=== PATIENT | female | born 1990 | race American Indian/Alaskan Native ===

== ENCOUNTER 2020-02-16 20:11 | Emergency (ER) | payer SELFPAY ==
[2020-02-16 20:20] VITALS: BP 108/64
--- NOTE | 2020-02-16 21:08 | XRay Report ---
CHEST 1 VIEW 02/16/2020 9:01 PM INDICATION / CLINICAL INFORMATION: Chest pain for 2 days. COMPARISON: None available. FINDINGS: SUPPORT DEVICES: None. HEART / MEDIASTINUM: No significant abnormality. LUNGS / PLEURA: No significant pulmonary or pleural abnormality. No pneumothorax. ADDITIONAL FINDINGS: No significant additional findings. IMPRESSION: 1. No acute abnormality of the chest. Signer Name: Jordan Kirk MD Signed: 02/16/2020 9:03 PM Workstation Name: [id number]
[2020-02-16] MEDS ORDERED: KETOROLAC 30 MG/1 ML INJ IM ONE (22:52)
[2020-02-16] MEDS ORDERED: BUTALB/ACETAMINOPHEN/CAFFEINE TAB PO ONE (22:52)
[2020-02-16] MEDS: ONDANSETRON 4 MG ODT TAB PO ONE ×2 (23:08→23:09)
[2020-02-16 23:09] LABS: Hematocrit 32.4 % (30.3-42.9); Hemoglobin 11.1 gm/dl (10.1-14.3); Mean Corpuscular HGB Conc 34 % (30-34); Mean Corpuscular Volume 88 fl (79-97); Platelet Count 291 K/mm3 (140-440); Red Blood Count 3.66 M/mm3 (3.65-5.03); Red Cell Distribution Width 14.1 % (13.2-15.2)
[2020-02-16 23:32] LABS: Alanine Aminotransferase 7 units/L (7-56); Albumin 3.9 g/dL (3.9-5); BUN/Creatinine Ratio 23; Blood Urea Nitrogen 14 mg/dL (7-17); Calcium 8.8 mg/dL (8.4-10.2); Hemolysis Index 5
[2020-02-16 23:49] LABS: RBC Morphology Normal; Total Cells Counted 100
--- NOTE | 2020-02-17 00:21 | Emergency Department Report ---
ED General Adult HPI - General Chief complaint: Chest Pain Stated complaint: BAD HEADACHES CHEST PAIN Source: patient Mode of arrival: Ambulatory Limitations: No Limitations - History of Present Illness Initial comments: Patient is a 30-year-old -[place] female with no past medical history who presents to the ED with complaint of acute onset persistent severe bitemporal headache and left-sided chest wall pain for the last 12 hours. Patient states that she woke up with pain in the left lateral chest wall and that the pain has been constant and is worse with palpation of the left chest wall or walking. Patient states that the headache is also been persistent despi te taking [id number] ibuprofen. Patient admits that she usually sleeps on her left side most of the night and suspect this may have been from sleeping on the left side. Patient also states that she has been worried in the last 2 days because of the current lockdown condition and that she is unable to go to work yet she has 5 children to take care of alone. The patient states that because of the stress in the house headache is worsened. Patient denies dizziness, syncope, shortness of breath, fever, chills, cough, nasal and sinus congestion, sore throat, abdominal pain, nausea and vomiting or diarrhea, change in vision or back pain, traumatic injury or heavy lifting. MD Complaint: left-sided chest wall pain; bitemporal headache -: Sudden, days(s) (2) Location: head, chest Radiation: non-radiation Severity scale (0 -10): 8 Quality: aching, sharp Consistency: constant Improves with: none Worsens with: none Associated Symptoms: denies other symptoms, chest pain (left-sided), headaches. denies: confusion, cough, diaphoresis, fever/chills, loss of appetite, malaise, nausea/vomiting, rash, seizure, shortness of breath, syncope, weakness Treatments Prior to Arrival: none - Related Data Previous Rx's Medication Instructions Recorded Last Taken Type HYDROcodone/ACETAMINOPHEN [Lortab 1 each PO Q8H #10 tablet 06/12/14 Unknown Rx 5-325 mg Tablet] Ibuprofen [Motrin] 600 mg PO Q8H #30 tablet 06/12/14 Unknown Rx Butalb/Acetamin/Caff 50-325-40 1 tab PO Q6HR PRN #15 tab 02/17/20 Unknown Rx [Fioricet 50-325-40] Ketorolac [Toradol] 10 mg PO Q8H PRN #20 tablet 02/17/20 Unknown Rx Ondansetron [Zofran Odt] 4 mg PO Q6HR PRN #15 tab.rapdis 02/17/20 Unknown Rx Allergies Allergy/AdvReac Type Severity Reaction Status Date / Time No Known Allergies Allergy Unverified 06/12/14 03:36 ED Review of Systems ROS: Stated complaint: BAD HEADACHES CHEST PAIN Other details as noted in HPI Constitutional: denies: chills, fever Eyes: denies: eye pain, eye discharge, vision change ENT: denies: ear pain, throat pain Respiratory: denies: cough, shortness of breath, wheezing Cardiovascular: chest pain (left chest wall pain). denies: palpitations Endocrine: no symptoms reported Gastrointestinal: denies: abdominal pain, nausea, diarrhea Genitourinary: denies: urgency, dysuria, discharge Musculoskeletal: denies: back pain, joint swelling, arthralgia Skin: denies: rash, lesions Neurological: headache. denies: weakness, paresthesias Psychiatric: anxiety. denies: depression Hematological/Lymphatic: denies: easy bleeding, easy bruising ED Past Medical Hx - Past Medical History Previous Medical History?: No - Surgical History Past Surgical History?: Yes Additional Surgical History: c section x2 2007, 2010 - Social History Smoking Status: Never Smoker Substance Use Type: None - Medications Home Medications: Home Medications Medication Instructions Recorded Confirmed Last Taken Type HYDROcodone/ACETAMINOPHEN [Lortab 1 each PO Q8H #10 tablet 06/12/14 Unknown Rx 5-325 mg Tablet] Ibuprofen [Motrin] 600 mg PO Q8H #30 tablet 06/12/14 Unknown Rx Butalb/Acetamin/Caff 50-325-40 1 tab PO Q6HR PRN #15 tab 02/17/20 Unknown Rx [Fioricet 50-325-40] Ketorolac [Toradol] 10 mg PO Q8H PRN #20 tablet 02/17/20 Unknown Rx Ondansetron [Zofran Odt] 4 mg PO Q6HR PRN #15 tab.rapdis 02/17/20 Unknown Rx ED Physical Exam - General Limitations: No Limitations General appearance: alert, in no apparent distress - Head Head exam: Present: atraumatic, normocephalic, normal inspection - Eye Eye exam: Present: normal appearance, PERRL, EOMI Pupils: Present: normal accommodation - ENT ENT exam: Present: normal exam, normal orophraynx, mucous membranes moist, TM's normal bilaterally, normal external ear exam - Neck Neck exam: Present: normal inspection, full ROM - Respiratory Respiratory exam: Present: normal lung sounds bilaterally, chest wall tenderness (palpable reproducible left chest wall tenderness). Absent: respiratory distress, wheezes, rales, rhonchi - Cardiovascular Cardiovascular Exam: Present: regular rate, normal rhythm. Absent: systolic murmur, diastolic murmur, rubs, gallop - GI/Abdominal GI/Abdominal exam: Present: soft, normal bowel sounds. Absent: tenderness, guarding - Extremities Exam Extremities exam: Present: normal inspection, full ROM, normal capillary refill - Back Exam Back exam: Present: normal inspection, full ROM. Absent: muscle spasm, paraspinal tenderness - Neurological Exam Neurological exam: Present: alert, oriented X3, CN II-XII intact, normal gait, reflexes normal - Psychiatric Psychiatric exam: Present: normal affect, normal mood, anxious - Skin Skin exam: Present: warm, dry, intact, normal color. Absent: rash ED Course Vital Signs 02/16/20 20:18 Temperature 98.3 F Pulse Rate 85 Respiratory 18 Rate Blood Pressure 108/64 O2 Sat by Pulse 99 Oximetry ED Medical Decision Making - Lab Data Result diagrams: 02/16/20 22:57 02/16/20 22:57 - Radiology Data Radiology results: report reviewed, image reviewed Chest x-ray shows no acute cardiopulmonary abnormalities or pneumonitis. - Medical Decision Making This is a 30-year-old female who presented to the ED with acute onset persistent bitemporal headache with left-sided chest wall pain. In the ED, patient is alert and oriented x3 and is not in distress. EKG shows normal sinus rhythm with ventricular rate of [address] or T wave abnormalities. Chest x-ray shows no acute cardiopulmonary abnormalities or pneumonitis. Lab test results were reviewed and are all nonactionable. Patient was treated for pain in the ED and on reevaluation, patient's pain resolved especially headache. Patient was discharged home on pain medications and advised follow-up with her primary care physician in 5 to 7 days for reevaluation. Patient symptoms are likely due to anxiety, muscle strain of the chest wall and tension headache. Patient was advised to return to the ED immediately if symptoms get worse. - Differential Diagnosis Anxiety; Muscle strain; Tension headache Critical care attestation.: If time is entered above; I have spent that time in minutes in the direct care of this critically ill patient, excluding procedure time. ED Disposition Clinical Impression: Left-sided chest wall pain, Anxiety as acute reaction to exceptional stress Tension-type headache Qualifiers: Headache chronicity pattern: acute headache Intractability: not intractable Qualified Code(s): G44.209 - Tension-type headache, unspecified, not intractable Disposition: DC-01 TO HOME OR SELFCARE Is pt being admited?: No Does the pt Need Aspirin: No Condition: Stable Instructions: Chest Pain (ED), Costochondritis (ED), Tension Headache (ED), Generalized Anxiety Disorder (ED) Additional Instructions: All lab test results are unremarkable as well as chest x-ray and EKG. Your symptoms are due to anxiety and tension headache and your chest pain is due to muscle strain of your chest wall. Therefore take medications with food, drink plenty of fluids and follow-up with your primary care physician in 5 to 7 days for reevaluation. Return to the ED immediately if symptoms get worse. Prescriptions: Butalb/Acetamin/Caff 50-325-40 [Fioricet 50-325-40] 1 tab PO Q6HR PRN #15 tab PRN Reason: Headache Ketorolac [Toradol] 10 mg PO Q8H PRN #20 tablet PRN Reason: Pain Ondansetron [Zofran Odt] 4 mg PO Q6HR PRN #15 tab.rapdis PRN Reason: Nausea Referrals: [facility] [Provider Group] - 7-10 days Time of Disposition: 00:16 Print Language: COMORAN
[2020-02-17 00:24] LABS: Bacteria,Urine 2+ /HPF (Negative); Bilirubin,Urine NEG (Negative); Blood,Urine NEG (Negative); Color,Urine Yellow (Yellow); Mucus,Urine FEW /HPF; Protein,Urine <15 mg/dL mg/dL (Negative)
== END 2020-02-17 00:38 | disposition home or self-care (01) ==
LOC: ED 20:11
DX: R07.89 Other chest pain (principal); G44.209 Tension-type headache, unspecified, not intractable; F41.9 Anxiety disorder, unspecified; Z98.890 Other specified postprocedural states; Z79.1 Long term (current) use of non-steroidal anti-inflammatories (NSAID); Z79.899 Other long term (current) drug therapy
CPT/HCPCS: 36415; 71045; 80053; 81001; 84484; 84703; 85007; 85025; 87076; 87086; 87186; 93005; 93010; 96372; 99284; J1885; Q0162

== ENCOUNTER 2020-04-10 15:42 | Emergency (ER) | payer SELFPAY ==
[2020-04-10 15:49] VITALS: BP 114/81
[2020-04-10] MEDS ORDERED: IBUPROFEN 600 MG TAB PO ONE (17:06)
--- NOTE | 2020-04-10 17:11 | Emergency Department Report ---
ED General Adult HPI - General Chief complaint: Chest Pain Stated complaint: CP/HEADACHE/ Time Seen by Provider: 04/10/20 17:06 Source: patient, RN notes reviewed, old records reviewed Mode of arrival: Ambulatory Limitations: No Limitations - History of Present Illness Initial comments: 30-year-old -[place] female presents to the emergency room complaining of chest pain and headache with shortness of breath x2 days. Patient states lying flat makes her shortness of breath worse and Tylenol helps with her chest pain and headache. Patient states that the headache will come back as well as the chest pain after the Tylenol has worn off. Patient denies any nausea vomiting or diarrhea. Patient denies any dizziness change of vision fever or chills. Patient's last menstrual period was 04/03/2020. Patient is 5 para 5. Patient reports that the headache and chest pain is intermittent will resolve with meds but return. Patient reports she does not have a primary care provider. She has no known drug allergies. Patient reports she has been seen here before in the past for headaches. Patient does admit that she feels overwhelmed at home as she has 5 children all under the age of 11. With a 7-month-old and a [id number]. Onset/Timin -: days(s) Location: head, chest Radiation: non-radiation Severity scale (0 -10): 4 Quality: aching Consistency: intermittent Improves with: medication Worsens with: rest Associated Symptoms: chest pain, headaches, shortness of breath. denies: loss of appetite, nausea/vomiting, syncope, weakness Treatments Prior to Arrival: none - Related Data Previous Rx's Medication Instructions Recorded Last Taken Type HYDROcodone/ACETAMINOPHEN [Lortab 1 each PO Q8H #10 tablet 06/12/14 Unknown Rx 5-325 mg Tablet] Butalb/Acetamin/Caff 50-325-40 1 tab PO Q6HR PRN #15 tab 02/17/20 Unknown Rx [Fioricet 50-325-40] Ketorolac [Toradol] 10 mg PO Q8H PRN #20 tablet 02/17/20 Unknown Rx Ondansetron [Zofran Odt] 4 mg PO Q6HR PRN #15 tab.rapdis 02/17/20 Unknown Rx Ibuprofen [Motrin 600 MG tab] 600 mg PO Q8H #30 tablet 04/10/20 Unknown Rx Allergies Allergy/AdvReac Type Severity Reaction Status Date / Time No Known Allergies Allergy Unverified 06/12/14 03:36 ED Review of Systems ROS: Stated complaint: CP/HEADACHE/ Other details as noted in HPI ED Past Medical Hx - Past Medical History Previous Medical History?: No - Surgical History Past Surgical History?: Yes Additional Surgical History: c section x2 2007, 2010 - Social History Smoking Status: Never Smoker Substance Use Type: None - Medications Home Medications: Home Medications Medication Instructions Recorded Confirmed Last Taken Type HYDROcodone/ACETAMINOPHEN [Lortab 1 each PO Q8H #10 tablet 06/12/14 Unknown Rx 5-325 mg Tablet] Butalb/Acetamin/Caff 50-325-40 1 tab PO Q6HR PRN #15 tab 02/17/20 Unknown Rx [Fioricet 50-325-40] Ketorolac [Toradol] 10 mg PO Q8H PRN #20 tablet 02/17/20 Unknown Rx Ondansetron [Zofran Odt] 4 mg PO Q6HR PRN #15 tab.rapdis 02/17/20 Unknown Rx Ibuprofen [Motrin 600 MG tab] 600 mg PO Q8H #30 tablet 04/10/20 Unknown Rx ED Physical Exam - General Limitations: No Limitations General appearance: alert, in no apparent distress - Head Head exam: Present: atraumatic, normocephalic - Eye Eye exam: Present: normal appearance - ENT ENT exam: Present: mucous membranes moist - Neck Neck exam: Present: tenderness (Bilateral trapeze), full ROM - Respiratory Respiratory exam: Present: normal lung sounds bilaterally. Absent: respiratory distress, chest wall tenderness - Cardiovascular Cardiovascular Exam: Present: regular rate, normal rhythm. Absent: systolic murmur, diastolic murmur, rubs, gallop - GI/Abdominal GI/Abdominal exam: Present: soft. Absent: distended, tenderness, guarding - Extremities Exam Extremities exam: Present: normal inspection, full ROM - Back Exam Back exam: Present: normal inspection, full ROM - Expanded Neurological Exam Expanded Patient oriented to: Present: person, place, time Cranial nerves: EOM's Intact: Normal, Gag Reflex: Normal, Tongue Deviation: Normal, Nystagmus: Normal, Facial Sensation: Normal, Facial Palsy with Forehead Movement: Normal, Facial Palsy without Forehead Movement: Normal Cerebellar function: Finger to Nose: Normal, Heel to [place]: Normal, Romberg: Normal Upper motor neuron: Kodak Neglect: Normal, Pronator Drift: Normal, Sensory Extinction: Normal Sensory exam: Upper Extremity Light Touch: Normal, Upper Extremity Pin Prick: Normal, Upper Extremity Temperature: Normal, UE 2 Point Discrimination: Normal, Lower Extremity Light Touch: Normal, Lower Extremity Pin Prick: Normal, Lower Extremity Temperature: Normal, LE 2 Point Discrimination: Normal Motor strength exam: RUE: 4, LUE: 4, RLE: 4, LLE: 4 Best Eye Response ([place]): (4) open spontaneously Best Motor Response ([place]): (6) obeys commands Best Verbal Response ([place]): (5) oriented [place] Total: 15 - Psychiatric Psychiatric exam: Present: normal affect, normal mood - Skin Skin exam: Present: warm, dry, intact, normal color. Absent: rash ED Course Vital Signs 04/10/20 15:46 Temperature 98.2 F Pulse Rate 77 Respiratory 18 Rate Blood Pressure 114/81 O2 Sat by Pulse 100 Oximetry ED Medical Decision Making - EKG Data EKG shows normal: sinus rhythm Rate: normal - Radiology Data Radiology results: report reviewed Referring Physician:NIKHIL JOSÉPatient Name:SOLIS WRIGHTatient ID:[id number] of :[id number]:FemaleAccession:[id number] Date:[id number] Status:Finalized Findings [facility] [address] [place] [address] XRay Report Signed Patient: SOLIS VALDES MR#: [id number] : 1990 Acct:[id number] Age/Sex: 30 / F ADM Date: 04/10/20 Loc: ED Attending Dr: Ordering Physician: RACHEL PURVIS Date of Service: 04/10/20 Procedure(s): XR chest routine 2V Accession Number(s): [id number] cc: RACHEL PURVIS Fluoro Time In Minutes: CHEST 2 VIEWS INDICATION / CLINICAL INFORMATION: Chest pain shortness of breath. COMPARISON: 02/16/2020 FINDINGS: SUPPORT DEVICES: None. HEART / MEDIASTINUM: No significant abnormality. LUNGS / PLEURA: No significant pulmonary or pleural abnormality. No pneumothorax. ADDITIONAL FINDINGS: No significant additional findings. IMPRESSION: No significant abnormality or change from 02/16/2020 Signer Name: Len Haskins MD FACR Signed: 04/10/2020 5:30 PM Workstation Name: [id number] Transcribed By: MS Dictated By: Len Haskins MD Electronically Authenticated By: Len Haskins MD Signed Date/Time: 04/10/201729 DD/ 29 TD/TT: - Medical Decision Making 30-year-old -[place] female presents to the emergency room complaining of chest pain and headache with shortness of breath x2 days. Patient states lying flat makes her shortness of breath worse and Tylenol helps with her chest pain and headache. Patient states that the headache will come back as well as the chest pain after the Tylenol has worn off. Patient denies any nausea vomiting or diarrhea. Patient denies any dizziness change of vision fever or chills. Patient's last menstrual period was 04/03/2020. Patient is 5 para 5. Patient reports that the headache and chest pain is intermittent will resolve with meds but return. Patient reports she does not have a primary care provider. She has no known drug allergies. Patient reports she has been seen here before in the past for headaches. Patient does admit that she feels overwhelmed at home as she has 5 children all under the age of 11. With a 7-month-old and a [id number]. Chest x-ray, ibuprofen 600 mg. EKG was normal. Critical care attestation.: If time is entered above; I have spent that time in minutes in the direct care of this critically ill patient, excluding procedure time. ED Disposition Clinical Impression: Headache, Chest discomfort Disposition: DC-01 TO HOME OR SELFCARE Is pt being admited?: No Does the pt Need Aspirin: No Condition: Stable Instructions: Acute Headache (ED), Noncardiac Chest Pain (ED) Additional Instructions: EKG is normal chest x-ray is negative for any acute findings. Please take ibuprofen increase your fluid intake avoid sodium and processed foods. Follow- up with your primary care provider. I have listed 1 below for your convenience Prescriptions: Ibuprofen [Motrin 600 MG tab] 600 mg PO Q8H #30 tablet Referrals: SHARI CH MD [Staff Physician] - 3-5 Days
--- NOTE | 2020-04-10 17:35 | XRay Report ---
CHEST 2 VIEWS INDICATION / CLINICAL INFORMATION: Chest pain shortness of breath. COMPARISON: 02/16/2020 FINDINGS: SUPPORT DEVICES: None. HEART / MEDIASTINUM: No significant abnormality. LUNGS / PLEURA: No significant pulmonary or pleural abnormality. No pneumothorax. ADDITIONAL FINDINGS: No significant additional findings. IMPRESSION: No significant abnormality or change from 02/16/2020 Signer Name: Len Haskins MD FACR Signed: 04/10/2020 5:30 PM Workstation Name: [id number]
== END 2020-04-10 18:21 | disposition home or self-care (01) ==
LOC: ED 15:42
DX: R07.89 Other chest pain (principal); R51 Headache; Z79.899 Other long term (current) drug therapy; Z98.890 Other specified postprocedural states
CPT/HCPCS: 71046; 93005; 99283

== ENCOUNTER 2021-12-20 10:55 | Emergency (ER) | payer SELFPAY ==
[2021-12-20 11:41] VITALS: BP 119/60
--- NOTE | 2021-12-20 11:58 | Emergency Department Report ---
Chief Complaint: Urogenital-Female Stated Complaint: VAG DISCHARGE,ABD PAIN - HPI History of Present Illness: 31-year-old female presents to the ED complaining of white vaginal discharge after douching and using feminine wash x1. She states last menstrual cycle was 1 week ago. She denies any abdominal pain at present. Patient states she noticed a funny odor with discharge. Patient alert and oriented x4. Patient denies any nausea /vomiting fever. Patient to follow-up with PCP or ANIMAL CARE TAKER for furthering testing. - Exam Vital Signs: Vital Signs 12/20/21 12/20/21 11:37 11:40 Temperature 98.1 F 98.1 F Pulse Rate 76 78 Respiratory 14 14 Rate Blood Pressure 119/69 Blood Pressure 119/60 [Left] O2 Sat by Pulse 100 100 Oximetry Physical Exam: General: Awake, appropriately interactive, no acute distress. Neck: Supple. Full range of motion intact. Cardiovascular: Normal peripheral perfusion. Pulmonary: No respiratory distress. Patient is speaking normally without use of accessory muscles. Skin: No apparent rashes or lesions. Neurological: No facial asymmetry. Speech is clear. Follows commands. Patient is alert and oriented. Musculoskeletal: Full range of motion, no crepitus. No tenderness to palpate nonerythematous no edema test appreciated. Able to bear weight and ambulate without difficulty. Distal neurovascular and motor/sensory function is intact. Psych: Cooperative. Appropriate mood and affect. MSE screening note: Focused history and physical exam performed. Due to findings the following was ordered: ED Medical Decision Making - Medical Decision Making 31-year-old female presents to the ED complaining of white vaginal discharge after douching and using feminine wash x1. She states last menstrual cycle was 1 week ago. She denies any abdominal pain at present. Patient states she noticed a funny odor with discharge. Patient alert and oriented x4. Patient denies any nausea /vomiting fever. Patient to follow-up with PCP or ANIMAL CARE TAKER for furthering testing. I have spoken with the patient and/or caregiver. I have explained the patient condition, diagnosis and treatment plan based on information available to me at this time. I have answered the patient and/caregiver questions and addressed any concerns. The patient and/or caregiver have has good an understanding of t he patient diagnosed condition and treatment plan as can be expected at this point. The vital signs have been stable. The patient condition is stable and appropriate for discharge from the emergency department. The patient and caregiver has been given detailed instruction in a written format and expressed understanding of discharge instruction. The patient/or caregiver are aware that any significant change in condition or worsening of symptoms should prompt an immediate return to the this or the closest emergency department or call to 911 - Differential Diagnosis Bacterial vaginosis, trichomonas,candididias ED Disposition for MSE Clinical Impression: Bacterial vaginosis Disposition: HOME / SELF CARE / HOMELESS Is pt being admited?: No Does the pt Need Aspirin: No Condition: Stable Instructions: Bacterial Vaginosis, [id number], Bacterial Vaginosis (ED) Additional Instructions: Do not douche or use feminine wash Follow-up with [facility] ANIMAL CARE TAKER Prescriptions: Fluconazole [Diflucan TAB] 200 mg PO QDAY 2 Days #2 tablet metroNIDAZOLE [Flagyl TAB] 500 mg PO Q12HR 7 Days #14 tab Referrals: ADRIAN MCDONALD MD [Staff Physician] - 3-5 Days Forms: STI Treatment and Prevention, Work/School Release Form(ED) Time of Disposition: 12:11 ED Review of Systems ROS: Stated complaint: VAG DISCHARGE,ABD PAIN Other details as noted in HPI Constitutional: denies: chills, fever Eyes: denies: eye pain, eye discharge, vision change ENT: denies: ear pain, throat pain Respiratory: denies: cough, shortness of breath, wheezing Cardiovascular: denies: chest pain, palpitations Endocrine: no symptoms reported Gastrointestinal: denies: abdominal pain, nausea, diarrhea Genitourinary: denies: urgency, dysuria, discharge Musculoskeletal: denies: back pain, joint swelling, arthralgia Skin: denies: rash, lesions Neurological: denies: headache, weakness, paresthesias Psychiatric: denies: anxiety, depression Hematological/Lymphatic: denies: easy bleeding, easy bruising
== END 2021-12-20 12:46 | disposition home or self-care (01) ==
LOC: ED 10:55
DX: N77.1 Vaginitis, vulvitis and vulvovaginitis in diseases classified elsewhere (principal)
CPT/HCPCS: 99282

== ENCOUNTER 2022-06-09 11:02 | Emergency (ER) | payer SELFPAY ==
--- NOTE | 2022-06-09 11:31 | Emergency Department Report ---
ED Rash HPI - HPI Stated Complaint: BUG BITE ON FACE Time Seen by Provider: 06/09/22 11:27 Duration: 1 Day Suspected Cause: Insect Rash Symptoms: Yes Itching, No Facial Swelling, No Tongue/Oral Swelling, No Breathing Difficulties, No Choking Sensation, No Wheezing/Dyspnea, No Peeling, No Blistering, No Fever, No Lightheaded, No Malaise, No Myalgias Severity: mild ED Review of Systems ROS: Stated complaint: BUG BITE ON FACE Other details as noted in HPI Constitutional: no symptoms reported Eyes: as per HPI ENT: denies: ear pain, throat pain Respiratory: denies: see HPI, cough, orthopnea Cardiovascular: denies: chest pain, palpitations, dyspnea on exertion Endocrine: denies: excessive sweating, flushing Gastrointestinal: denies: abdominal pain, nausea, vomiting Skin: rash, pruritus. denies: change in color, change in hair/nails Neurological: denies: headache, weakness, paresthesias ED Past Medical Hx - Surgical History Additional Surgical History: c section x2 2007, 2010 - Social History Smoking Status: Never Smoker Substance Use Type: None - Medications Home Medications: Home Medications Medication Instructions Recorded Confirmed Last Taken Type HYDROcodone/ACETAMINOPHEN [Lortab 1 each PO Q8H #10 tablet 06/12/14 Unknown Rx 5-325 mg Tablet] Butalb/Acetamin/Caff 50-325-40 1 tab PO Q6HR PRN #15 tab 02/17/20 Unknown Rx [Fioricet 50-325-40] Ketorolac [Toradol] 10 mg PO Q8H PRN #20 tablet 02/17/20 Unknown Rx Ondansetron [Zofran Odt] 4 mg PO Q6HR PRN #15 tab.rapdis 02/17/20 Unknown Rx Ibuprofen [Motrin 600 MG tab] 600 mg PO Q8H #30 tablet 04/10/20 Unknown Rx Fluconazole [Diflucan TAB] 200 mg PO QDAY 2 Days #2 tablet 12/20/21 Unknown Rx metroNIDAZOLE [Flagyl TAB] 500 mg PO Q12HR 7 Days #14 tab 12/20/21 Unknown Rx Calamine/Zinc Oxide [Calamine 177 ml TP TID PRN #1 06/09/22 Unknown Rx Lotion] diphenhydrAMINE [Benadryl CAP] 25 mg PO Q6HR PRN #20 capsule 06/09/22 Unknown Rx Rash Exam - Exam General: Vital signs noted. No distress. Alert and acting appropriately. HEENT: No Periorbital Edema, No Conjuctival Injection, No Chemosis, No Perioral Edema, No Tongue Edema, No Uvular Edema, No Compromised Airway, No Drooling Lungs: Yes Good Air Exchange, No Wheezes, No Ronchi, No Cough Heart: No Regular, No Murmur Skin: No Urticarial Rash, No Maculopapular Rash, No Morbilliform rash, No Bulla(e), No Excoriations, No Weeping, No Tenderness, No Erythema, No Edema, No Encrustations Other: Positive: Abdomen Normal, Neurologic Normal Critical care attestation.: If time is entered above; I have spent that time in minutes in the direct care of this critically ill patient, excluding procedure time. ED Disposition Clinical Impression: Insect bite Disposition: HOME / SELF CARE / HOMELESS Is pt being admited?: No Condition: Stable Instructions: Insect Bite, Adult, [id number] Prescriptions: diphenhydrAMINE [Benadryl CAP] 25 mg PO Q6HR PRN #20 capsule PRN Reason: Itching Calamine/Zinc Oxide [Calamine Lotion] 177 ml TP TID PRN #1 PRN Reason: Itching
[2022-06-09 11:32] VITALS: BP 109/67
== END 2022-06-09 14:20 | disposition home or self-care (01) ==
LOC: ED 11:02
DX: S00.86XA Insect bite (nonvenomous) of other part of head, initial encounter (principal); W57.XXXA Bitten or stung by nonvenomous insect and other nonvenomous arthropods, initial encounter; Y93.89 Activity, other specified; Y92.89 Other specified places as the place of occurrence of the external cause; Y99.8 Other external cause status
CPT/HCPCS: 99282